=== PATIENT | female | born 1960 | race Caucasian/White ===

== ENCOUNTER 2017-10-30 08:35 | Emergency (ER) | payer MEDICAID ==
[~2017-10-30] VITALS: Ht 165.1 cm; Wt 80.6 kg
[~2017-10-30 08:35] MED LIST: ASPI-41 PO; DOCU100C40 PO; HYDR-3972 PO; NO HOME MEDS
[2017-10-30 09:20] LABS: HEMATOCRIT 49.1 % (35.0-45.0); MEAN CORPUSCULAR HEMOGLOBIN 28.8 PG (27.0-31.0); MEAN CORPUSCULAR HGB CONC 32.5 % (33.0-36.5); MEAN CORPUSCULAR VOLUME 88.6 FL (78-98); MEAN PLATELET VOLUME 7.2 FL (7.4-10.4); PLATELET COUNT 269 X10'3 (140-440); RED BLOOD COUNT 5.54 X10'6 (4.20-5.60); RED CELL DISTRIBUTION WIDTH 14.6 % (11.5-14.5); WHITE BLOOD COUNT 10.2 X10'3 (4.5-11.0)
[2017-10-30] MEDS ORDERED: ondansetron 4mg rapidly disintigrating tab PO ONE (09:25)
[2017-10-30] MEDS ORDERED: normal saline 1000ML IV soln IVB ONE (09:25)
[2017-10-30 09:33] LABS: PROTHROMBIN TIME 10.6 SECONDS (9.0-12.0)
[2017-10-30 09:37] LABS: ALANINE AMINOTRANSFERASE 35 U/L (12-78); ALBUMIN 3.1 G/DL (3.4-5.0); ALBUMIN/GLOBULIN RATIO 0.7 (1.1-1.5); ALKALINE PHOSPHATASE 119 IU/L (46-116); ANION GAP 6 (8-16); ASPARTATE AMINO TRANSFERASE 24 U/L (10-37); BILIRUBIN,TOTAL 0.6 MG/DL (0.1-1.0); BLOOD UREA NITROGEN 19 MG/DL (7-18); BUN/CREATININE RATIO 17.9 (6.6-38.0); CALCIUM 9.1 MG/DL (8.5-10.1); CHLORIDE 105 MMOL/L (99-107); CREATININE 1.06 MG/DL (0.40-0.90); GLUCOSE 105 MG/DL (70-104); POTASSIUM 4.3 MMOL/L (3.5-5.1); SODIUM 143 MMOL/L (135-145); TOTAL CARBON DIOXIDE 31.7 MMOL/L (24-32); TOTAL PROTEIN 7.7 G/DL (6.4-8.2); eGFR 53 ML/MIN
[2017-10-30 09:46] LABS: CLARITY,URINE SLIGHTLY CLOUDY (Clear); GLUCOSE, URINE NEGATIVE (Neg); KETONES,URINE TRACE mg/dl (Neg); LEUKOCYTE ESTERASE ,URINE NEGATIVE (Neg); NITRITES, URINE NEGATIVE (Neg); OCCULT BLOOD,URINE NEGATIVE (Neg); PH,URINE 6.5 (4.8-8.0); PROTEIN,URINE 100 mg/dl (Neg)
[2017-10-30 09:48] LABS: UA COLLECTION TYPE CLN CATCH MIDSTREAM
[2017-10-30 09:49] LABS: COLOR,URINE DARK YELLOW (Yellow)
[2017-10-30 09:53] LABS: HYALINE CASTS 0-3 /LPF (NEGATIVE); MUCUS STRANDS MANY /LPF (Neg); SQUAMOUS EPITHELIAL CELL,UR MANY /LPF (FEW)
[2017-10-30 09:54] LABS: BACTERIA,URINE FEW /HPF (Neg); RBC,URINE 0-2 /HPF (0-2); WBC,URINE 0-4 /HPF (0-4)
[2017-10-30 10:14] LABS: TOTAL CELLS COUNTED 100
[2017-10-30 10:16] LABS: PLATELET ESTIMATE NORMAL
[2017-10-30] MEDS ORDERED: ONDA4TAB6 PO (10:22)
[2017-10-30 10:32] VITALS: BP 119/66
== END 2017-10-30 10:33 | disposition home or self-care (01) ==
LOC: ER 08:36
DX: R11.10 Vomiting, unspecified (principal); I10 Essential (primary) hypertension; F15.10 Other stimulant abuse, uncomplicated; Z79.82 Long term (current) use of aspirin; Z95.2 Presence of prosthetic heart valve; Z88.5 Allergy status to narcotic agent
CPT/HCPCS: 36415; 80053; 81001; 85025; 85610; 96360; 99284; J7030

== ENCOUNTER 2018-05-13 01:39 | Emergency (ER) | payer MEDICAID ==
[~2018-05-13] VITALS: Ht 165.1 cm; Wt 81.8 kg
[~2018-05-13 01:39] MED LIST changes: +ONDA4TAB6 PO
[2018-05-13] MEDS ORDERED: normal saline 1000ML IV soln IVB ONE (02:05)
[2018-05-13 03:00] LABS: PROTHROMBIN TIME 10.6 SECONDS (9.0-12.0)
[2018-05-13 03:02] LABS: BASOPHILS # (AUTO) 0.1 X10'3 (0-0.2); BASOPHILS % (AUTO) 0.7 % (0-1); EOSINOPHILS # (AUTO) 0.2 X10'3 (0-0.9); EOSINOPHILS % (AUTO) 1.8 % (0-6); HEMATOCRIT 44.4 % (35.0-45.0); HEMOGLOBIN 14.8 g/dl (12.0-16.0); LYMPHOCYTES # (AUTO) 1.6 X10'3 (1.1-4.8); LYMPHOCYTES % (AUTO) 16.7 % (21-51); MEAN CORPUSCULAR HEMOGLOBIN 27.8 PG (27.0-31.0); MEAN CORPUSCULAR HGB CONC 33.3 % (33.0-36.5); MEAN CORPUSCULAR VOLUME 83.6 FL (78-98); MEAN PLATELET VOLUME 7.2 FL (7.4-10.4); MONOCYTES % (AUTO) 10.1 % (2-12); NEUTROPHILS # (AUTO) 6.7 X10'3 (1.8-7.7); NEUTROPHILS % (AUTO) 70.7 % (42-75); PLATELET COUNT 378 X10'3 (140-440); RED BLOOD COUNT 5.31 X10'6 (4.20-5.60); RED CELL DISTRIBUTION WIDTH 16.9 % (11.5-14.5); WHITE BLOOD COUNT 9.5 X10'3 (4.5-11.0)
[2018-05-13 03:04] LABS: URINE AMPHETAMINE SCREEN POSITIVE (Neg); URINE BARBITUATE SCREEN NEGATIVE (Neg); URINE BENZODIAZEPINES SCREEN NEGATIVE (Neg); URINE CANNABINOID SCREEN POSITIVE (Neg); URINE COCAINE SCREEN NEGATIVE (Neg); URINE METHADONE SCREEN NEGATIVE (Neg); URINE OPIATE SCREEN NEGATIVE (Neg); URINE PHENCYCLIDINE SCREEN NEGATIVE (Neg)
[2018-05-13 03:05] LABS: CLARITY,URINE CLEAR (Clear); COLOR,URINE YELLOW (Yellow); GLUCOSE, URINE NEGATIVE (Neg); KETONES,URINE NEGATIVE (Neg); LEUKOCYTE ESTERASE ,URINE NEGATIVE (Neg); NITRITES, URINE NEGATIVE (Neg); OCCULT BLOOD,URINE NEGATIVE (Neg); PH,URINE 5.5 (4.8-8.0); PROTEIN,URINE TRACE mg/dl (Neg); UROBILINOGEN,URINE 0.2 E.U/dL (0.2-1.0)
[2018-05-13 03:06] LABS: ALANINE AMINOTRANSFERASE 23 U/L (12-78); ALBUMIN 3.6 G/DL (3.4-5.0); ALBUMIN/GLOBULIN RATIO 0.8 (1.1-1.5); ALKALINE PHOSPHATASE 148 IU/L (46-116); ANION GAP 9 (8-16); ASPARTATE AMINO TRANSFERASE 23 U/L (10-37); BILIRUBIN,TOTAL 0.6 MG/DL (0.1-1.0); BLOOD UREA NITROGEN 37 MG/DL (7-18); CHLORIDE 101 MMOL/L (99-107); CREATININE 1.48 MG/DL (0.40-0.90); GLUCOSE 123 MG/DL (70-104); POTASSIUM 4.3 MMOL/L (3.5-5.1); SODIUM 138 MMOL/L (135-145); TOTAL CARBON DIOXIDE 28.4 MMOL/L (24-32); TOTAL PROTEIN 8.3 G/DL (6.4-8.2); eGFR 36 ML/MIN
[2018-05-13 03:07] LABS: UA COLLECTION TYPE CLN CATCH MIDSTREAM
[2018-05-13 03:09] LABS: LACTIC SEPSIS 0.9 MMOL/L (0.4-2.0)
[2018-05-13 03:10] LABS: ETHANOL < 0.010 GM/DL (0.0-0.010); TROPONIN I < 0.04 NG/ML (0.0-0.05)
[2018-05-13 03:28] LABS: WBC,URINE 0-4 /HPF (0-4)
[2018-05-13 03:29] LABS: BACTERIA,URINE NONE SEEN /HPF (Neg); HYALINE CASTS 0-3 /LPF (NEGATIVE); MUCUS STRANDS MANY /LPF (Neg); RBC,URINE NONE SEEN /HPF (0-2); SQUAMOUS EPITHELIAL CELL,UR MODERATE /LPF (FEW)
[2018-05-13 04:35] VITALS: BP 141/67
== END 2018-05-13 04:39 | disposition home or self-care (01) ==
LOC: ER 01:40
DX: F15.10 Other stimulant abuse, uncomplicated (principal); R91.8 Other nonspecific abnormal finding of lung field; I11.0 Hypertensive heart disease with heart failure; I50.9 Heart failure, unspecified; J44.9 Chronic obstructive pulmonary disease, unspecified; Z88.5 Allergy status to narcotic agent; Z79.82 Long term (current) use of aspirin; Z79.899 Other long term (current) drug therapy; Z98.890 Other specified postprocedural states
CPT/HCPCS: 36415; 70450; 71045; 80053; 80305; 80320; 81001; 82140; 82948; 83605; 84484; 85025; 85610; 87040; 93005; 99285; J7030

== ENCOUNTER 2018-05-15 13:16 | Inpatient (IN) | payer MEDICAID ==
[~2018-05-15] VITALS: Ht 165.1 cm; Wt 81.0 kg
[2018-05-15 13:55] LABS: BASOPHILS % (AUTO) 0.1 % (0-1); EOSINOPHILS # (AUTO) 0.2 X10'3 (0-0.9); EOSINOPHILS % (AUTO) 1.7 % (0-6); HEMATOCRIT 43.2 % (35.0-45.0); HEMOGLOBIN 14.5 g/dl (12.0-16.0); LYMPHOCYTES # (AUTO) 1.3 X10'3 (1.1-4.8); LYMPHOCYTES % (AUTO) 14.7 % (21-51); MEAN CORPUSCULAR HGB CONC 33.7 % (33.0-36.5); MEAN CORPUSCULAR VOLUME 83.3 FL (78-98); MEAN PLATELET VOLUME 7.1 FL (7.4-10.4); MONOCYTES # (AUTO) 0.5 X10'3 (0-0.9); MONOCYTES % (AUTO) 6.2 % (2-12); NEUTROPHILS # (AUTO) 6.8 X10'3 (1.8-7.7); NEUTROPHILS % (AUTO) 77.3 % (42-75); PLATELET COUNT 353 X10'3 (140-440); RED BLOOD COUNT 5.18 X10'6 (4.20-5.60); RED CELL DISTRIBUTION WIDTH 17.1 % (11.5-14.5); WHITE BLOOD COUNT 8.8 X10'3 (4.5-11.0)
[2018-05-15 14:07] LABS: PROTHROMBIN TIME 10.4 SECONDS (9.0-12.0)
[2018-05-15 14:21] LABS: ALANINE AMINOTRANSFERASE 23 U/L (12-78); ALBUMIN 3.2 G/DL (3.4-5.0); ALBUMIN/GLOBULIN RATIO 0.7 (1.1-1.5); ALKALINE PHOSPHATASE 130 IU/L (46-116); ANION GAP 8 (8-16); ASPARTATE AMINO TRANSFERASE 23 U/L (10-37); BILIRUBIN,TOTAL 0.3 MG/DL (0.1-1.0); BLOOD UREA NITROGEN 32 MG/DL (7-18); BUN/CREATININE RATIO 24.8 (6.6-38.0); CALCIUM 9.7 MG/DL (8.5-10.1); CHLORIDE 104 MMOL/L (99-107); CREATININE 1.29 MG/DL (0.40-0.90); GLUCOSE 145 MG/DL (70-104); POTASSIUM 4.1 MMOL/L (3.5-5.1); SODIUM 141 MMOL/L (135-145); TOTAL CARBON DIOXIDE 29.1 MMOL/L (24-32); TOTAL PROTEIN 7.7 G/DL (6.4-8.2); eGFR 42 ML/MIN
[2018-05-15] MEDS ORDERED: normal saline 1000ML IV soln IVB ONE (14:40)
[2018-05-15 15:05] LABS: URINE AMPHETAMINE SCREEN POSITIVE (Neg); URINE BARBITUATE SCREEN NEGATIVE (Neg); URINE BENZODIAZEPINES SCREEN NEGATIVE (Neg); URINE CANNABINOID SCREEN POSITIVE (Neg); URINE COCAINE SCREEN NEGATIVE (Neg); URINE METHADONE SCREEN NEGATIVE (Neg); URINE OPIATE SCREEN NEGATIVE (Neg); URINE PHENCYCLIDINE SCREEN NEGATIVE (Neg)
[2018-05-15 15:07] LABS: ETHANOL < 0.010 GM/DL (0.0-0.010); TROPONIN I < 0.04 NG/ML (0.0-0.05)
[2018-05-15 15:19] LABS: CLARITY,URINE CLOUDY (Clear); COLOR,URINE YELLOW (Yellow); GLUCOSE, URINE NEGATIVE (Neg); KETONES,URINE NEGATIVE (Neg); LEUKOCYTE ESTERASE ,URINE TRACE (Neg); NITRITES, URINE NEGATIVE (Neg); OCCULT BLOOD,URINE NEGATIVE (Neg); PH,URINE 5.5 (4.8-8.0); PROTEIN,URINE TRACE mg/dl (Neg); UA COLLECTION TYPE CLN CATCH MIDSTREAM; UROBILINOGEN,URINE 0.2 E.U/dL (0.2-1.0)
[2018-05-15 15:27] LABS: MUCUS STRANDS FEW /LPF (Neg); SQUAMOUS EPITHELIAL CELL,UR MANY /LPF (FEW)
[2018-05-15 15:28] LABS: BACTERIA,URINE 1+ /HPF (Neg); RBC,URINE 0-2 /HPF (0-2); WBC,URINE 0-4 /HPF (0-4)
[2018-05-15 15:35] LABS: LACTIC SEPSIS 1.1 MMOL/L (0.4-2.0)
[2018-05-15 15:41] LABS: AMMONIA < 10 UMOL/L (11-32)
[2018-05-15] MEDS ORDERED: NO HOME MEDS (15:50)
[2018-05-15] MEDS ORDERED: acetaminophen 325mg tablet PO ONE (16:30)
[2018-05-15] MEDS ORDERED: LORazepam 2 mg/ml vial IV ONE (16:40)
[2018-05-15] MEDS ORDERED: cloNIDine 0.1 mg tablet PO ONE (16:40)
[2018-05-15] MEDS ORDERED: magnesium hydroxide 30ml (MOM) UD suspension PO PRN (17:15)
[2018-05-15] MEDS ORDERED: magnesium 4gm in 100ml NS 100 ML IV PRN (17:15)
[2018-05-15] MEDS ORDERED: mag hydrox/Alum hydrox/simeth 30ml oral suspension PO PRN (17:15)
[2018-05-15] MEDS ORDERED: potassium Cl 20 mEq SR tablet PO PRN ×2 (17:15)
[2018-05-15] MEDS ORDERED: ondansetron/PF 4mg/2ml inj IV PRN (17:15)
[2018-05-15] MEDS ORDERED: magnesium 1gm/100ml D5W IVPB 100 ML IV PRN (17:15)
[2018-05-15] MEDS ORDERED: diphenhydrAMINE 25mg capsule PO PRN (17:15)
[2018-05-15] MEDS ORDERED: potassium Cl 40MEQ/NS 500ml 500 ML IV PRN ×2 (17:15)
[2018-05-15] MEDS ORDERED: magnesium Cl slow-release 64mg tablet PO PRN (17:15)
[2018-05-15] MEDS: K and/or MAG REPLACEMENT MC SCH (17:15)
[2018-05-15] MEDS ORDERED: acetaminophen 325mg tablet PO PRN (17:15)
[2018-05-15] MEDS ORDERED: aspirin 325mg tablet PO ONE (17:20)
[2018-05-15 17:49] LABS: HEMOGLOBIN A1C 6.7 % (4.5-6.2)
[2018-05-15] MEDS ORDERED: hydrALAZINE 20mg/ml inj. IV PRN (17:55)
[2018-05-15] MEDS: normal saline 1000ml 1,000 ML IV SCH (18:01)
[2018-05-15 20:00] VITALS: BP 148/90
[2018-05-15] MEDS: carvedilol 6.25mg tablet PO SCH (20:27)
[2018-05-15 22:00] VITALS: BP 138/83
[2018-05-16] VITALS (7 sets, daily range): BP systolic 129–190; BP diastolic 92–121
[2018-05-16] MEDS: normal saline 1000ml 1,000 ML IV SCH ×2 (04:03→15:52)
[2018-05-16 05:32] LABS: BASOPHILS % (AUTO) 0.2 % (0-1); EOSINOPHILS # (AUTO) 0.3 X10'3 (0-0.9); EOSINOPHILS % (AUTO) 3.1 % (0-6); HEMATOCRIT 38.7 % (35.0-45.0); HEMOGLOBIN 12.9 g/dl (12.0-16.0); LYMPHOCYTES # (AUTO) 1.4 X10'3 (1.1-4.8); LYMPHOCYTES % (AUTO) 14.7 % (21-51); MEAN CORPUSCULAR HEMOGLOBIN 27.7 PG (27.0-31.0); MEAN CORPUSCULAR HGB CONC 33.3 % (33.0-36.5); MEAN PLATELET VOLUME 7.2 FL (7.4-10.4); MONOCYTES # (AUTO) 0.8 X10'3 (0-0.9); MONOCYTES % (AUTO) 8.7 % (2-12); NEUTROPHILS # (AUTO) 6.9 X10'3 (1.8-7.7); NEUTROPHILS % (AUTO) 73.3 % (42-75); PLATELET COUNT 308 X10'3 (140-440); RED BLOOD COUNT 4.66 X10'6 (4.20-5.60); RED CELL DISTRIBUTION WIDTH 16.9 % (11.5-14.5); WHITE BLOOD COUNT 9.4 X10'3 (4.5-11.0)
[2018-05-16 05:59] LABS: ALANINE AMINOTRANSFERASE 18 U/L (12-78); ALBUMIN 2.5 G/DL (3.4-5.0); ALBUMIN/GLOBULIN RATIO 0.6 (1.1-1.5); ALKALINE PHOSPHATASE 106 IU/L (46-116); ANION GAP 8 (8-16); ASPARTATE AMINO TRANSFERASE 19 U/L (10-37); BILIRUBIN,TOTAL 0.3 MG/DL (0.1-1.0); BLOOD UREA NITROGEN 24 MG/DL (7-18); BUN/CREATININE RATIO 24.5 (6.6-38.0); CALCIUM 8.7 MG/DL (8.5-10.1); CHLORIDE 106 MMOL/L (99-107); CHOL/HDL RATIO 3.6 (0.00-4.99); CHOLESTEROL 178 MG/DL (0-200); CREATININE 0.98 MG/DL (0.40-0.90); GLUCOSE 112 MG/DL (70-104); HDL CHOLESTEROL 50 MG/DL (35-60); LDL CHOLESTEROL 117 MG/DL (50-100); MAGNESIUM 1.9 MG/DL (1.5-2.4); PHOSPHORUS 3.5 MG/DL (2.3-4.5); POTASSIUM 4.3 MMOL/L (3.5-5.1); SODIUM 140 MMOL/L (135-145); TOTAL CARBON DIOXIDE 26.4 MMOL/L (24-32); TOTAL PROTEIN 6.4 G/DL (6.4-8.2); TRIGLYCERIDES 74 MG/DL (20-135); eGFR 58 ML/MIN
[2018-05-16] MEDS: K and/or MAG REPLACEMENT MC SCH (07:54)
[2018-05-16] MEDS ORDERED: atorvastatin 10mg tablet PO SCH (08:00)
[2018-05-16] MEDS: carvedilol 6.25mg tablet PO SCH ×2 (08:02→20:53)
[2018-05-16] MEDS: aspirin 81mg tablet.DR PO SCH (08:03)
[2018-05-16] MEDS: enoxaparin 40mg/0.4ml syringe SUBCUT SCH (08:04)
[2018-05-16] MEDS: atorvastatin 20mg tablet PO SCH (10:39)
[2018-05-16] MEDS ORDERED: metFORMIN 500mg tablet PO ONE (17:35)
[2018-05-16] MEDS ORDERED: amLODIPine 5mg tablet PO ONE (17:40)
[2018-05-16] MEDS: acetaminophen 325mg tablet PO PRN (18:52)
[2018-05-17 06:00] VITALS: BP 154/100
[2018-05-17 06:16] LABS: BASOPHILS # (AUTO) 0.1 X10'3 (0-0.2); BASOPHILS % (AUTO) 0.9 % (0-1); EOSINOPHILS # (AUTO) 0.2 X10'3 (0-0.9); HEMATOCRIT 39.9 % (35.0-45.0); HEMOGLOBIN 13.5 g/dl (12.0-16.0); LYMPHOCYTES # (AUTO) 1.4 X10'3 (1.1-4.8); LYMPHOCYTES % (AUTO) 16.6 % (21-51); MEAN CORPUSCULAR HEMOGLOBIN 28.1 PG (27.0-31.0); MEAN CORPUSCULAR HGB CONC 33.8 % (33.0-36.5); MEAN PLATELET VOLUME 7.2 FL (7.4-10.4); MONOCYTES # (AUTO) 0.8 X10'3 (0-0.9); MONOCYTES % (AUTO) 10.2 % (2-12); NEUTROPHILS # (AUTO) 5.7 X10'3 (1.8-7.7); NEUTROPHILS % (AUTO) 69.3 % (42-75); PLATELET COUNT 321 X10'3 (140-440); RED BLOOD COUNT 4.81 X10'6 (4.20-5.60); RED CELL DISTRIBUTION WIDTH 16.4 % (11.5-14.5); WHITE BLOOD COUNT 8.2 X10'3 (4.5-11.0)
[2018-05-17 06:47] LABS: ALANINE AMINOTRANSFERASE 23 U/L (12-78); ALBUMIN 2.8 G/DL (3.4-5.0); ALBUMIN/GLOBULIN RATIO 0.7 (1.1-1.5); ALKALINE PHOSPHATASE 112 IU/L (46-116); ANION GAP 4 (8-16); ASPARTATE AMINO TRANSFERASE 24 U/L (10-37); BILIRUBIN,TOTAL 0.3 MG/DL (0.1-1.0); BLOOD UREA NITROGEN 19 MG/DL (7-18); BUN/CREATININE RATIO 18.3 (6.6-38.0); CALCIUM 9.2 MG/DL (8.5-10.1); CHLORIDE 103 MMOL/L (99-107); CREATININE 1.04 MG/DL (0.40-0.90); GLUCOSE 104 MG/DL (70-104); MAGNESIUM 1.8 MG/DL (1.5-2.4); PHOSPHORUS 3.9 MG/DL (2.3-4.5); POTASSIUM 4.1 MMOL/L (3.5-5.1); SODIUM 136 MMOL/L (135-145); TOTAL CARBON DIOXIDE 29.3 MMOL/L (24-32); eGFR 54 ML/MIN
[2018-05-17] MEDS ORDERED: amLODIPine 5mg tablet PO SCH (08:00)
[2018-05-17] MEDS: K and/or MAG REPLACEMENT MC SCH (08:00)
[2018-05-17] MEDS ORDERED: nitrofuran/nitrofuran macrocrysal 100 MG capsule PO SCH (08:30)
[2018-05-17] MEDS: enoxaparin 40mg/0.4ml syringe SUBCUT SCH (08:32)
[2018-05-17] MEDS: aspirin 81mg tablet.DR PO SCH (08:33)
[2018-05-17] MEDS: carvedilol 6.25mg tablet PO SCH (08:34)
[2018-05-17] MEDS: atorvastatin 20mg tablet PO SCH (08:34)
[2018-05-17 08:38] VITALS: BP_SYST 143; BP_SYST 155; BP_DIAS 93; BP_DIAS 97
[2018-05-17 10:00] VITALS: BP 124/92
[2018-05-17] MEDS: acetaminophen 325mg tablet PO PRN (11:56)
[2018-05-17] MEDS ORDERED: ASPI-1264 PO (17:33)
[2018-05-17] MEDS ORDERED: ATOR10TA PO (17:33)
== END 2018-05-17 18:15 | disposition home or self-care (01) | DRG 45 ==
LOC: ER 13:17 → ED HOLD 17:12 → CMPBEDREQ 19:53 → ORTHO 4S 19:59
PROVIDERS: ADMIT Family Medicine; ATTEND Internal Medicine
DX: I63.40 Cerebral infarction due to embolism of unspecified cerebral artery (principal); G93.40 Encephalopathy, unspecified; N17.9 Acute kidney failure, unspecified; I11.0 Hypertensive heart disease with heart failure; I50.9 Heart failure, unspecified; E11.9 Type 2 diabetes mellitus without complications; F15.10 Other stimulant abuse, uncomplicated; E78.5 Hyperlipidemia, unspecified; F12.10 Cannabis abuse, uncomplicated; F17.210 Nicotine dependence, cigarettes, uncomplicated; I25.10 Atherosclerotic heart disease of native coronary artery without angina pectoris; F41.9 Anxiety disorder, unspecified; J44.9 Chronic obstructive pulmonary disease, unspecified; N39.0 Urinary tract infection, site not specified; Z79.82 Long term (current) use of aspirin; Z79.899 Other long term (current) drug therapy; Z95.2 Presence of prosthetic heart valve; Z88.5 Allergy status to narcotic agent; Z71.6 Tobacco abuse counseling; Z71.51 Drug abuse counseling and surveillance of drug abuser
CPT/HCPCS: 36415; 70450; 70544; 70551; 80053; 80061; 80305; 80320; 81001; 82140; 82948; 83036; 83605; 83735; 84100; 84484; 85025; 85610; 87040; 87070; 92616; 93306; 93880; 96374; 97116; 97161; 99285; J1650; J2060; J7030

== ENCOUNTER 2018-05-27 11:40 | Emergency (ER) | payer MEDICAID ==
[~2018-05-27] VITALS: Ht 165.1 cm; Wt 82.7 kg
[~2018-05-27 11:40] MED LIST changes: +ASPI-1264 PO; -ASPI-41 PO; +ATOR10TA PO; -DOCU100C40 PO; -HYDR-3972 PO; -ONDA4TAB6 PO
[2018-05-27 12:33] LABS: CLARITY,URINE CLOUDY (Clear); COLOR,URINE YELLOW (Yellow); GLUCOSE, URINE NEGATIVE (Neg); KETONES,URINE NEGATIVE (Neg); LEUKOCYTE ESTERASE ,URINE LARGE (Neg); NITRITES, URINE POSITIVE (Neg); OCCULT BLOOD,URINE LARGE (Neg); PROTEIN,URINE 100 mg/dl (Neg)
[2018-05-27 12:39] LABS: UA COLLECTION TYPE CLN CATCH MIDSTREAM
[2018-05-27 12:40] LABS: WBC,URINE TNTC /HPF (0-4)
[2018-05-27 12:41] LABS: BACTERIA,URINE 2+ /HPF (Neg); MUCUS STRANDS NONE SEEN /LPF (Neg); RBC,URINE 50-100 /HPF (0-2); SQUAMOUS EPITHELIAL CELL,UR NONE SEEN /LPF (FEW)
[2018-05-27 13:19] LABS: BASOPHILS % (AUTO) 0.2 % (0-1); EOSINOPHILS # (AUTO) 0.2 X10'3 (0-0.9); EOSINOPHILS % (AUTO) 1.5 % (0-6); HEMATOCRIT 40.9 % (35.0-45.0); HEMOGLOBIN 13.4 g/dl (12.0-16.0); LYMPHOCYTES # (AUTO) 1.2 X10'3 (1.1-4.8); LYMPHOCYTES % (AUTO) 9.6 % (21-51); MEAN CORPUSCULAR HEMOGLOBIN 27.5 PG (27.0-31.0); MEAN CORPUSCULAR HGB CONC 32.7 % (33.0-36.5); MEAN CORPUSCULAR VOLUME 84.1 FL (78-98); MONOCYTES # (AUTO) 0.9 X10'3 (0-0.9); MONOCYTES % (AUTO) 7.3 % (2-12); NEUTROPHILS # (AUTO) 10.4 X10'3 (1.8-7.7); NEUTROPHILS % (AUTO) 81.4 % (42-75); PLATELET COUNT 337 X10'3 (140-440); RED BLOOD COUNT 4.87 X10'6 (4.20-5.60); RED CELL DISTRIBUTION WIDTH 17.1 % (11.5-14.5); WHITE BLOOD COUNT 12.8 X10'3 (4.5-11.0)
[2018-05-27] MEDS ORDERED: normal saline 1000ML IV soln IVB ONE ×2 (13:20→13:45)
[2018-05-27] MEDS ORDERED: CefTRIAXone 2gm/D5W 50ml 50 ML IV ONE ×2 (13:20→13:40)
[2018-05-27 14:03] LABS: PROTHROMBIN TIME 10.7 SECONDS (9.0-12.0)
[2018-05-27 14:11] LABS: ALANINE AMINOTRANSFERASE 23 U/L (12-78); ALBUMIN 2.9 G/DL (3.4-5.0); ALBUMIN/GLOBULIN RATIO 0.7 (1.1-1.5); ALKALINE PHOSPHATASE 105 IU/L (46-116); ANION GAP 9 (8-16); ASPARTATE AMINO TRANSFERASE 21 U/L (10-37); BILIRUBIN,TOTAL 0.4 MG/DL (0.1-1.0); BLOOD UREA NITROGEN 21 MG/DL (7-18); BUN/CREATININE RATIO 20.8 (6.6-38.0); CALCIUM 8.6 MG/DL (8.5-10.1); CHLORIDE 106 MMOL/L (99-107); CREATININE 1.01 MG/DL (0.40-0.90); GLUCOSE 102 MG/DL (70-104); POTASSIUM 3.9 MMOL/L (3.5-5.1); SODIUM 141 MMOL/L (135-145); TOTAL CARBON DIOXIDE 26.5 MMOL/L (24-32); TOTAL PROTEIN 6.8 G/DL (6.4-8.2); eGFR 56 ML/MIN
[2018-05-27] MEDS ORDERED: phenazopyridine 100mg tablet PO ONE (15:00)
[2018-05-27] MEDS ORDERED: CEPH500C5 PO (15:00)
[2018-05-27] MEDS ORDERED: PHEN-716 PO (15:00)
[2018-05-27] MEDS ORDERED: ONDA4TAB12 PO (15:00)
[2018-05-27 15:14] VITALS: BP 147/95
== END 2018-05-27 15:16 | disposition home or self-care (01) ==
LOC: ER 11:41
DX: N39.0 Urinary tract infection, site not specified (principal); R10.12 Left upper quadrant pain; I50.9 Heart failure, unspecified; I11.0 Hypertensive heart disease with heart failure; J44.9 Chronic obstructive pulmonary disease, unspecified; F17.210 Nicotine dependence, cigarettes, uncomplicated; F15.90 Other stimulant use, unspecified, uncomplicated; Z98.890 Other specified postprocedural states; Z79.82 Long term (current) use of aspirin; Z79.2 Long term (current) use of antibiotics; Z88.5 Allergy status to narcotic agent
CPT/HCPCS: 36415; 80053; 81001; 85025; 85610; 87077; 87088; 87186; 96365; 99284; J0696; J7030

== ENCOUNTER 2018-09-30 08:46 | Emergency (ER) | payer MEDICAID ==
[~2018-09-30] VITALS: Ht 165.1 cm; Wt 79.0 kg
[~2018-09-30 08:46] MED LIST changes: -ASPI-1264 PO; +CEPH500C5 PO; +ONDA4TAB12 PO; +PHEN-716 PO
[2018-09-30 08:57] VITALS: BP 137/93
[2018-09-30 10:00] LABS: CLARITY,URINE CLEAR (Clear); COLOR,URINE YELLOW (Yellow); GLUCOSE, URINE NEGATIVE (Neg); KETONES,URINE NEGATIVE (Neg); LEUKOCYTE ESTERASE ,URINE TRACE (Neg); NITRITES, URINE NEGATIVE (Neg); OCCULT BLOOD,URINE NEGATIVE (Neg); PH,URINE 6.5 (4.8-8.0); PROTEIN,URINE 30 mg/dl (Neg)
[2018-09-30 10:09] LABS: UA COLLECTION TYPE CLN CATCH MIDSTREAM
[2018-09-30 10:15] LABS: RBC,URINE 0-2 /HPF (0-2); WBC,URINE 0-4 /HPF (0-4)
[2018-09-30 10:17] LABS: BACTERIA,URINE FEW /HPF (Neg); MUCUS STRANDS FEW /LPF (Neg)
[2018-09-30 10:18] LABS: SQUAMOUS EPITHELIAL CELL,UR MANY /LPF (FEW)
== END 2018-09-30 11:07 | disposition left against medical advice (07) ==
LOC: ER 08:47
DX: R10.9 Unspecified abdominal pain (principal); Z53.21 Procedure and treatment not carried out due to patient leaving prior to being seen by health care provider
CPT/HCPCS: 81001

== ENCOUNTER 2018-10-14 20:03 | Emergency (ER) | payer MEDICAID ==
[~2018-10-14] VITALS: Ht 165.1 cm; Wt 80.7 kg
[2018-10-14] MEDS ORDERED: ketorolac tromethamine 15mg/ml inj. IM ONE (23:00)
[2018-10-14 23:40] VITALS: BP 133/69
== END 2018-10-14 23:43 | disposition home or self-care (01) ==
LOC: ER 20:04
DX: M25.559 Pain in unspecified hip (principal); M54.5 Low back pain; I11.0 Hypertensive heart disease with heart failure; I50.9 Heart failure, unspecified; J44.9 Chronic obstructive pulmonary disease, unspecified; F15.90 Other stimulant use, unspecified, uncomplicated; Z88.5 Allergy status to narcotic agent; Z79.899 Other long term (current) drug therapy; W01.0XXA Fall on same level from slipping, tripping and stumbling without subsequent striking against object, initial encounter; Y93.01 Activity, walking, marching and hiking; Y92.89 Other specified places as the place of occurrence of the external cause; Y99.8 Other external cause status
CPT/HCPCS: 72170; 96372; 99284; J1885

== ENCOUNTER 2018-11-03 15:25 | Emergency (ER) | payer MEDICAID ==
[~2018-11-03] VITALS: Ht 165.1 cm; Wt 72.7 kg
[2018-11-03 17:17] LABS: BASOPHILS # (AUTO) 0.1 X10'3 (0-0.2); BASOPHILS % (AUTO) 0.5 % (0-1); EOSINOPHILS # (AUTO) 0.2 X10'3 (0-0.9); EOSINOPHILS % (AUTO) 1.7 % (0-6); HEMATOCRIT 39.1 % (35.0-45.0); LYMPHOCYTES # (AUTO) 1.7 X10'3 (1.1-4.8); LYMPHOCYTES % (AUTO) 12.4 % (21-51); MEAN CORPUSCULAR HEMOGLOBIN 22.9 PG (27.0-31.0); MEAN CORPUSCULAR HGB CONC 30.7 % (33.0-36.5); MEAN CORPUSCULAR VOLUME 74.5 FL (78-98); MEAN PLATELET VOLUME 7.4 FL (7.4-10.4); MONOCYTES # (AUTO) 1.1 X10'3 (0-0.9); MONOCYTES % (AUTO) 7.5 % (2-12); NEUTROPHILS % (AUTO) 77.9 % (42-75); PLATELET COUNT 568 X10'3 (140-440); RED BLOOD COUNT 5.25 X10'6 (4.20-5.60); RED CELL DISTRIBUTION WIDTH 20.3 % (11.5-14.5); WHITE BLOOD COUNT 14.1 X10'3 (4.5-11.0)
[2018-11-03 17:22] LABS: ALANINE AMINOTRANSFERASE 43 U/L (12-78); ALBUMIN 2.4 G/DL (3.4-5.0); ALBUMIN/GLOBULIN RATIO 0.4 (1.1-1.5); ALKALINE PHOSPHATASE 133 IU/L (46-116); ANION GAP 11 (8-16); ASPARTATE AMINO TRANSFERASE 40 U/L (10-37); BILIRUBIN,TOTAL 0.2 MG/DL (0.1-1.0); BLOOD UREA NITROGEN 32 MG/DL (7-18); BUN/CREATININE RATIO 23.2 (6.6-38.0); CALCIUM 10.4 MG/DL (8.5-10.1); CHLORIDE 100 MMOL/L (99-107); CREATININE 1.38 MG/DL (0.40-0.90); GLUCOSE 104 MG/DL (70-104); SODIUM 137 MMOL/L (135-145); TOTAL CARBON DIOXIDE 26.1 MMOL/L (24-32); TOTAL PROTEIN 8.5 G/DL (6.4-8.2); eGFR 39 ML/MIN
[2018-11-03 17:26] LABS: INR 1.1 INR; PARTIAL THROMBOPLASTIN TIME 27 SECONDS (22-32); PROTHROMBIN TIME 10.7 SECONDS (9.0-12.0)
[2018-11-03 17:31] LABS: ANISOCYTOSIS 2+; HYPOCHROMASIA 1+; LARGE PLATELETS FEW; MICROCYTOSIS 1+; PLATELET ESTIMATE INCREASED; POLYCHROMASIA 1+
[2018-11-03 17:52] LABS: CLARITY,URINE SLIGHTLY CLOUDY (Clear); COLOR,URINE YELLOW (Yellow); GLUCOSE, URINE NEGATIVE (Neg); KETONES,URINE NEGATIVE (Neg); LEUKOCYTE ESTERASE ,URINE NEGATIVE (Neg); NITRITES, URINE NEGATIVE (Neg); OCCULT BLOOD,URINE SMALL (Neg); PROTEIN,URINE TRACE mg/dl (Neg)
[2018-11-03 17:54] LABS: UA COLLECTION TYPE CLN CATCH MIDSTREAM
[2018-11-03 17:57] LABS: WBC,URINE 0-4 /HPF (0-4)
[2018-11-03 17:58] LABS: BACTERIA,URINE 1+ /HPF (Neg); MUCUS STRANDS FEW /LPF (Neg); RBC,URINE 0-2 /HPF (0-2); SQUAMOUS EPITHELIAL CELL,UR MANY /LPF (FEW)
--- NOTE | 2018-11-03 18:20 | NUR ---
PATIENT UP IN THE BATHROOM.
[2018-11-03] MEDS ORDERED: DOXYCYCLINE 100MG CAPSULE PO STA (19:00)
[2018-11-03] MEDS ORDERED: CefTRIAXone 2gm/D5W 50ml 50 ML IV ONE (19:00)
[2018-11-03] MEDS ORDERED: methylPREDNISolone sod succ 125mg/2ml vial IV ONE (19:00)
[2018-11-03] MEDS ORDERED: albuterol 2.5 MG/3 ML nebule CONTNEB PRN (19:00)
[2018-11-03] MEDS ORDERED: ALBU6.7H INH (19:03)
[2018-11-03] MEDS ORDERED: DOXY100T2 PO (19:03)
[2018-11-03] MEDS ORDERED: PRED20TA PO (19:03)
[2018-11-03 19:23] VITALS: BP 129/66
== END 2018-11-03 20:42 | disposition home or self-care (01) ==
LOC: ER 15:25
DX: J44.1 Chronic obstructive pulmonary disease with (acute) exacerbation (principal); R06.03 Acute respiratory distress; R22.2 Localized swelling, mass and lump, trunk; I11.0 Hypertensive heart disease with heart failure; I50.9 Heart failure, unspecified; F41.9 Anxiety disorder, unspecified; F15.10 Other stimulant abuse, uncomplicated; Z88.5 Allergy status to narcotic agent; F17.210 Nicotine dependence, cigarettes, uncomplicated
CPT/HCPCS: 36415; 71045; 80053; 81001; 83605; 84145; 85025; 85610; 85730; 87040; 94644; 94760; 96365; 96375; 99285; J0696; J2930; 94640

== ENCOUNTER 2018-11-06 16:53 | Inpatient (IN) | payer MEDICAID | END 2018-11-09 13:06 | disposition home or self-care (01) | LOC: SUR 3N 23:00 → ER 16:53 → ED HOLD 21:09 ==

== ENCOUNTER 2019-01-10 15:46 | Inpatient (IN) | payer MEDICAID ==
[~2019-01-10] VITALS: Ht 165.1 cm; Wt 77.3 kg
[~2019-01-10 15:46] MED LIST changes: +ALBU6.7H INH; -CEPH500C5 PO; +DOXY100T2 PO; -NO HOME MEDS; -ONDA4TAB12 PO; -PHEN-716 PO
[2019-01-10] MEDS ORDERED: diltiazem-D5W 125mg/125ml 125 ML IV ONE ×2 (15:51→19:54)
[2019-01-10] MEDS ORDERED: diltiazem 5mg/ml 5ml inj. IV ONE ×2 (15:55→16:30)
[2019-01-10 16:21] LABS: BASOPHILS # (AUTO) 0.1 X10'3 (0-0.2); BASOPHILS % (AUTO) 0.9 % (0-1); EOSINOPHILS % (AUTO) 0.3 % (0-6); HEMATOCRIT 37.3 % (35.0-45.0); LYMPHOCYTES # (AUTO) 1.4 X10'3 (1.1-4.8); LYMPHOCYTES % (AUTO) 19.5 % (21-51); MEAN CORPUSCULAR HEMOGLOBIN 25.5 PG (27.0-31.0); MEAN CORPUSCULAR HGB CONC 32.3 g/dL (33.0-36.5); MEAN CORPUSCULAR VOLUME 79.1 FL (78-98); MEAN PLATELET VOLUME 8.2 FL (7.4-10.4); MONOCYTES # (AUTO) 0.4 X10'3 (0-0.9); MONOCYTES % (AUTO) 6.1 % (2-12); NEUTROPHILS # (AUTO) 5.2 X10'3 (1.8-7.7); NEUTROPHILS % (AUTO) 73.2 % (42-75); PLATELET COUNT 200 X10'3 (140-440); RED BLOOD COUNT 4.71 X10'6 (4.20-5.60); RED CELL DISTRIBUTION WIDTH 28.1 % (11.5-14.5); WHITE BLOOD COUNT 7.1 X10'3 (4.5-11.0)
--- NOTE | 2019-01-10 16:29 | NUR ---
DR JANE INFORMED AND SHOWN RHYTHM STRIP THAT PT HEART RATE WENT DOWN TO 99 AND THE RETURN BACK TO 160S WITH IN A COUPLE MINUTES, RECEIVED VERBAL ORDER FOR 10 MG IV CARDIZEM ONCE NOW AND GIVE UPDATE OF PT CHANGE
[2019-01-10 16:34] LABS: ANISOCYTOSIS 3+; MICROCYTOSIS 1+; PLATELET ESTIMATE NORMAL
[2019-01-10 16:35] LABS: POLYCHROMASIA FEW
[2019-01-10 16:36] LABS: ALANINE AMINOTRANSFERASE 43 U/L (12-78); ALBUMIN 2.4 G/DL (3.4-5.0); ALBUMIN/GLOBULIN RATIO 0.6 (1.1-1.5); ALKALINE PHOSPHATASE 143 IU/L (46-116); ANION GAP 10 (8-16); ASPARTATE AMINO TRANSFERASE 38 U/L (10-37); BILIRUBIN,TOTAL 0.2 MG/DL (0.1-1.0); BLOOD UREA NITROGEN 31 MG/DL (7-18); BUN/CREATININE RATIO 24.8 (6.6-38.0); CALCIUM 9.2 MG/DL (8.5-10.1); CHLORIDE 110 MMOL/L (99-107); CREATININE 1.25 MG/DL (0.40-0.90); GLUCOSE 169 MG/DL (70-104); POTASSIUM 3.7 MMOL/L (3.5-5.1); SODIUM 143 MMOL/L (135-145); TOTAL CARBON DIOXIDE 22.6 MMOL/L (24-32); TOTAL PROTEIN 6.5 G/DL (6.4-8.2); eGFR 44 ML/MIN
[2019-01-10] MEDS ORDERED: metoprolol tartrate 1mg/ml inj IV ONE (16:45)
--- NOTE | 2019-01-10 16:45 | NUR ---
DR JANE SHOWN PT REPEAT EKG AFTER SECOND DOSE OF 10 MG CARDIZEM, RECEIVED VERBAL ORDER FROM DR JANE 5MG IV LOPRESSER ONCE NOW.
[2019-01-10 17:06] LABS: PARTIAL THROMBOPLASTIN TIME 25 SECONDS (22-32); PROTHROMBIN TIME 10.3 SECONDS (9.0-12.0)
[2019-01-10] MEDS ORDERED: IPRA4AER IH (17:06)
[2019-01-10] MEDS ORDERED: HYDR2TAB7 PO (17:06)
[2019-01-10] MEDS ORDERED: ONDA8TAB13 PO (17:06)
[2019-01-10] MEDS ORDERED: iohexol 350MG/ML 100ml bottle IV ONE (17:27)
[2019-01-10] MEDS: normal saline 1000ml 1,000 ML IV SCH (17:47)
[2019-01-10] MEDS ORDERED: metoprolol tartrate 1mg/ml inj IV PRN (17:50)
[2019-01-10] MEDS ORDERED: ondansetron/PF 4mg/2ml inj IV PRN (17:50)
[2019-01-10] MEDS ORDERED: nitroGLYCERIN 0.4mg SUBLingual tab SL PRN (17:50)
[2019-01-10] MEDS ORDERED: regadenoson 0.4mg/5ml syringe IV ONE (17:50)
[2019-01-10] MEDS ORDERED: potassium Cl 40MEQ/NS 500ml 500 ML IV PRN ×2 (17:50)
[2019-01-10] MEDS ORDERED: acetaminophen 325mg tablet PO PRN (17:50)
[2019-01-10] MEDS ORDERED: potassium Cl 20 mEq SR tablet PO PRN ×2 (17:50)
[2019-01-10 19:50] VITALS: BP 134/88
--- NOTE | 2019-01-10 19:50 | NUR ---
Patient arrived to room 3014B via gurney from the ER with daughter at bedside. Patient oriented to room, call light, plan of care and all questions were answered. All belongings on person. Placed on Mobile 62, vital signs stable. Cardizem drip running at 5ml/hr.
[2019-01-10 20:00] VITALS: BP 134/88
[2019-01-10] MEDS ORDERED: diltiazem-D5W 125mg/125ml 125 ML IV SCH ×2 (20:00→20:04)
[2019-01-10] MEDS ORDERED: temazepam 15mg capsule PO PRN (21:00)
[2019-01-10] MEDS: acetaminophen 325mg tablet PO PRN (21:15)
[2019-01-10 22:00] VITALS: BP 141/78
[2019-01-10 23:00] VITALS: BP 121/74
[2019-01-11] VITALS (15 sets, daily range): BP systolic 114–175; BP diastolic 76–89
[2019-01-11] MEDS: acetaminophen 325mg tablet PO PRN ×3 (04:31→19:23)
[2019-01-11 05:14] LABS: ALANINE AMINOTRANSFERASE 37 U/L (12-78); ALBUMIN 2.2 G/DL (3.4-5.0); ALBUMIN/GLOBULIN RATIO 0.6 (1.1-1.5); ALKALINE PHOSPHATASE 129 IU/L (46-116); ANION GAP 10 (8-16); ASPARTATE AMINO TRANSFERASE 38 U/L (10-37); BILIRUBIN,TOTAL 0.2 MG/DL (0.1-1.0); BLOOD UREA NITROGEN 31 MG/DL (7-18); BUN/CREATININE RATIO 28.7 (6.6-38.0); CALCIUM 9.1 MG/DL (8.5-10.1); CHLORIDE 111 MMOL/L (99-107); CREATININE 1.08 MG/DL (0.40-0.90); GLUCOSE 84 MG/DL (70-104); POTASSIUM 3.8 MMOL/L (3.5-5.1); SODIUM 144 MMOL/L (135-145); TOTAL CARBON DIOXIDE 23.3 MMOL/L (24-32); TOTAL PROTEIN 5.9 G/DL (6.4-8.2); eGFR 52 ML/MIN
[2019-01-11 05:18] LABS: MAGNESIUM 1.9 MG/DL (1.5-2.4)
[2019-01-11 05:19] LABS: BASOPHILS % (AUTO) 0.7 % (0-1); EOSINOPHILS % (AUTO) 0.7 % (0-6); HEMATOCRIT 33.1 % (35.0-45.0); HEMOGLOBIN 10.8 g/dl (12.0-16.0); LYMPHOCYTES # (AUTO) 1.3 X10'3 (1.1-4.8); LYMPHOCYTES % (AUTO) 19.5 % (21-51); MEAN CORPUSCULAR HEMOGLOBIN 25.8 PG (27.0-31.0); MEAN CORPUSCULAR HGB CONC 32.5 g/dL (33.0-36.5); MEAN CORPUSCULAR VOLUME 79.3 FL (78-98); MEAN PLATELET VOLUME 6.8 FL (7.4-10.4); MONOCYTES # (AUTO) 0.7 X10'3 (0-0.9); MONOCYTES % (AUTO) 9.7 % (2-12); NEUTROPHILS # (AUTO) 4.7 X10'3 (1.8-7.7); NEUTROPHILS % (AUTO) 69.4 % (42-75); PLATELET COUNT 211 X10'3 (140-440); RED BLOOD COUNT 4.18 X10'6 (4.20-5.60); RED CELL DISTRIBUTION WIDTH 27.7 % (11.5-14.5); WHITE BLOOD COUNT 6.7 X10'3 (4.5-11.0)
--- NOTE | 2019-01-11 06:34 | NUR ---
Problems reprioritized. Patient report given, questions answered & plan of care reviewed with Sara HAYWARD.
--- NOTE | 2019-01-11 06:49 | NUR ---
Patient in room PCU 3014. I have received report from Joi HAYWARD and had the opportunity to ask questions and assume patient care.
[2019-01-11 07:08] LABS: ANISOCYTOSIS 3+; HYPOCHROMASIA 1+; MICROCYTOSIS 1+; PLATELET ESTIMATE NORMAL; POLYCHROMASIA 1+; TOTAL CELLS COUNTED 100
[2019-01-11] MEDS: K and/or MAG REPLACEMENT MC SCH (07:14)
[2019-01-11] MEDS: levoFLOXACIN-Levaquin 500mg/D5 100 ML IV SCH (08:00)
[2019-01-11] MEDS: albuterol 2.5 MG/3 ML nebule NEB SCH ×4 (08:00→20:04)
--- NOTE | 2019-01-11 08:10 | NUR ---
PAGER ID: [phone] MESSAGE: guy this patient is on a Cardizem drip and needs a lencho scan today, nuc med said she cannot be on the drip during the test. so either turn it off or reschedule? [id number] karen
--- NOTE | 2019-01-11 08:16 | NUR ---
PAGER ID: [phone] MESSAGE: laly Guillory 70's 80's all night
[2019-01-11] MEDS: metroNIDAZOLE-Flagyl 500mg/NS 100 ML IV SCH ×2 (09:14→16:19)
[2019-01-11] MEDS: diltiazem CD 120mg capsule (once-daily) PO SCH (09:19)
[2019-01-11] MEDS: aspirin 81mg tab.chew PO SCH (09:19)
[2019-01-11] MEDS: atorvastatin 20mg tablet PO SCH (09:19)
[2019-01-11 11:12] LABS: CHOLESTEROL 192 MG/DL (0-200); HDL CHOLESTEROL 32 MG/DL (35-60); LDL CHOLESTEROL 117 MG/DL (50-100); TRIGLYCERIDES 227 MG/DL (20-135)
[2019-01-11] MEDS ORDERED: regadenoson 0.4mg/5ml syringe IV ONE (13:45)
[2019-01-11] MEDS ORDERED: aminophylline inj. 10 ML IV ONE (13:45)
--- NOTE | 2019-01-11 14:09 | NUR ---
leaving for nuc med lencho scan
[2019-01-11] MEDS: aminophylline 250mg/10ml inj. IV PRN ×2 (15:07→15:11)
--- NOTE | 2019-01-11 18:20 | NUR ---
Patient in room PCU 3014. I have received report from Sara HAYWARD and had the opportunity to ask questions and assume patient care.
[2019-01-11] MEDS: apixaban 5mg tablet PO SCH (19:58)
[2019-01-12] MEDS: metroNIDAZOLE-Flagyl 500mg/NS 100 ML IV SCH ×4 (00:40→23:03)
[2019-01-12] MEDS: morphine 4 MG/ML inj SYRINge IV PRN ×4 (01:07→22:10)
[2019-01-12] MEDS: albuterol 2.5 MG/3 ML nebule NEB SCH ×4 (02:59→20:24)
[2019-01-12 03:00] VITALS: BP 170/97
[2019-01-12] MEDS: acetaminophen 325mg tablet PO PRN ×2 (03:13→16:35)
[2019-01-12] MEDS: normal saline 1000ml 1,000 ML IV SCH (05:45)
[2019-01-12 06:17] LABS: BASOPHILS % (AUTO) 0.6 % (0-1); EOSINOPHILS % (AUTO) 0.5 % (0-6); HEMATOCRIT 32.9 % (35.0-45.0); HEMOGLOBIN 10.6 g/dl (12.0-16.0); LYMPHOCYTES # (AUTO) 1.1 X10'3 (1.1-4.8); LYMPHOCYTES % (AUTO) 18.2 % (21-51); MEAN CORPUSCULAR HEMOGLOBIN 25.6 PG (27.0-31.0); MEAN CORPUSCULAR HGB CONC 32.2 g/dL (33.0-36.5); MEAN CORPUSCULAR VOLUME 79.5 FL (78-98); MEAN PLATELET VOLUME 6.6 FL (7.4-10.4); MONOCYTES # (AUTO) 0.6 X10'3 (0-0.9); MONOCYTES % (AUTO) 10.5 % (2-12); NEUTROPHILS # (AUTO) 4.3 X10'3 (1.8-7.7); NEUTROPHILS % (AUTO) 70.2 % (42-75); PLATELET COUNT 231 X10'3 (140-440); RED BLOOD COUNT 4.15 X10'6 (4.20-5.60); RED CELL DISTRIBUTION WIDTH 27.4 % (11.5-14.5); WHITE BLOOD COUNT 6.1 X10'3 (4.5-11.0)
[2019-01-12 06:20] VITALS: BP 162/98
[2019-01-12] MEDS: HYDROcodone/acetaminophen 5mg/325mg tablet PO PRN ×3 (06:28→19:14)
[2019-01-12 06:30] LABS: ALANINE AMINOTRANSFERASE 35 U/L (12-78); ALBUMIN 2.2 G/DL (3.4-5.0); ALBUMIN/GLOBULIN RATIO 0.6 (1.1-1.5); ALKALINE PHOSPHATASE 124 IU/L (46-116); ANION GAP 9 (8-16); ASPARTATE AMINO TRANSFERASE 38 U/L (10-37); BILIRUBIN,TOTAL 0.2 MG/DL (0.1-1.0); BLOOD UREA NITROGEN 23 MG/DL (7-18); BUN/CREATININE RATIO 20.7 (6.6-38.0); CALCIUM 9.2 MG/DL (8.5-10.1); CHLORIDE 109 MMOL/L (99-107); CREATININE 1.11 MG/DL (0.40-0.90); GLUCOSE 99 MG/DL (70-104); MAGNESIUM 1.6 MG/DL (1.5-2.4); POTASSIUM 3.9 MMOL/L (3.5-5.1); SODIUM 143 MMOL/L (135-145); TOTAL CARBON DIOXIDE 25.1 MMOL/L (24-32); eGFR 50 ML/MIN
--- NOTE | 2019-01-12 06:32 | NUR ---
Problems reprioritized. Patient report given, questions answered & plan of care reviewed with Genesis.
--- NOTE | 2019-01-12 06:32 | NUR ---
[facility] documentation: I have reviewed and agree with all interventions, assessments performed and documented by Marcel HAYWARD. [facility] Medication Administration: For this medication-pass time frame, all medication were reviewed, dispensed, administered and documented per hospital policy by Marcel HAYWARD.
--- NOTE | 2019-01-12 06:39 | NUR ---
Patient in room PCU 3014. I have received report from Joi HAYWARD and had the opportunity to ask questions and assume patient care.
[2019-01-12 06:58] VITALS: BP 162/98
[2019-01-12 07:52] LABS: TOTAL CELLS COUNTED 100
[2019-01-12 07:53] LABS: ANISOCYTOSIS 3+; HYPOCHROMASIA 1+; MICROCYTOSIS 1+; PLATELET ESTIMATE NORMAL; POLYCHROMASIA 1+; ROULEAUX 1+
[2019-01-12] MEDS: K and/or MAG REPLACEMENT MC SCH (08:00)
[2019-01-12] MEDS: levoFLOXACIN-Levaquin 500mg/D5 100 ML IV SCH (08:09)
[2019-01-12] MEDS: aspirin 81mg tab.chew PO SCH (08:11)
[2019-01-12] MEDS: apixaban 5mg tablet PO SCH ×2 (08:11→19:13)
[2019-01-12] MEDS: diltiazem CD 120mg capsule (once-daily) PO SCH (08:11)
[2019-01-12] MEDS: atorvastatin 20mg tablet PO SCH (08:11)
[2019-01-12 11:00] VITALS: BP 153/99
[2019-01-12 18:00] VITALS: BP 139/87
--- NOTE | 2019-01-12 18:39 | NUR ---
Patient in room PCU 3014. I have received report from Julia HAYWARD and had the opportunity to ask questions and assume patient care.
[2019-01-12 22:00] VITALS: BP 122/85
[2019-01-13] MEDS: HYDROcodone/acetaminophen 5mg/325mg tablet PO PRN ×2 (01:12→08:21)
[2019-01-13 02:00] VITALS: BP 135/81
[2019-01-13] MEDS: albuterol 2.5 MG/3 ML nebule NEB SCH ×4 (02:32→20:21)
[2019-01-13] MEDS: morphine 4 MG/ML inj SYRINge IV PRN ×3 (05:11→22:58)
[2019-01-13 06:15] LABS: BASOPHILS % (AUTO) 0.4 % (0-1); EOSINOPHILS % (AUTO) 0.6 % (0-6); HEMATOCRIT 34.1 % (35.0-45.0); HEMOGLOBIN 10.9 g/dl (12.0-16.0); LYMPHOCYTES # (AUTO) 1.4 X10'3 (1.1-4.8); LYMPHOCYTES % (AUTO) 21.8 % (21-51); MEAN CORPUSCULAR HEMOGLOBIN 25.6 PG (27.0-31.0); MEAN PLATELET VOLUME 6.8 FL (7.4-10.4); MONOCYTES # (AUTO) 0.6 X10'3 (0-0.9); MONOCYTES % (AUTO) 9.5 % (2-12); NEUTROPHILS # (AUTO) 4.5 X10'3 (1.8-7.7); NEUTROPHILS % (AUTO) 67.7 % (42-75); PLATELET COUNT 278 X10'3 (140-440); RED BLOOD COUNT 4.26 X10'6 (4.20-5.60); WHITE BLOOD COUNT 6.6 X10'3 (4.5-11.0)
[2019-01-13 06:30] LABS: ALANINE AMINOTRANSFERASE 37 U/L (12-78); ALBUMIN 2.3 G/DL (3.4-5.0); ALBUMIN/GLOBULIN RATIO 0.6 (1.1-1.5); ALKALINE PHOSPHATASE 131 IU/L (46-116); ANION GAP 11 (8-16); ASPARTATE AMINO TRANSFERASE 43 U/L (10-37); BILIRUBIN,TOTAL 0.2 MG/DL (0.1-1.0); BLOOD UREA NITROGEN 22 MG/DL (7-18); CALCIUM 9.2 MG/DL (8.5-10.1); CHLORIDE 107 MMOL/L (99-107); GLUCOSE 106 MG/DL (70-104); MAGNESIUM 1.6 MG/DL (1.5-2.4); SODIUM 142 MMOL/L (135-145); TOTAL CARBON DIOXIDE 24.2 MMOL/L (24-32); TOTAL PROTEIN 6.3 G/DL (6.4-8.2); eGFR 51 ML/MIN
--- NOTE | 2019-01-13 06:30 | NUR ---
Problems reprioritized. Patient report given, questions answered & plan of care reviewed with Jane HAYWARD and Kate RN.
--- NOTE | 2019-01-13 06:36 | NUR ---
Patient in room PCU 3014. I have received report from YESY Novoa and had the opportunity to ask questions and assume patient care.
[2019-01-13 07:00] VITALS: BP 133/93
[2019-01-13] MEDS: acetaminophen 325mg tablet PO PRN (07:16)
[2019-01-13] MEDS: atorvastatin 20mg tablet PO SCH (07:16)
[2019-01-13] MEDS: apixaban 5mg tablet PO SCH ×2 (07:16→21:15)
[2019-01-13] MEDS: diltiazem CD 120mg capsule (once-daily) PO SCH (07:32)
[2019-01-13] MEDS: levoFLOXACIN-Levaquin 500mg/D5 100 ML IV SCH (07:32)
[2019-01-13 07:44] LABS: TOTAL CELLS COUNTED 100
[2019-01-13 07:45] LABS: ANISOCYTOSIS 3+; HYPOCHROMASIA 1+; PLATELET ESTIMATE NORMAL; POLYCHROMASIA 1+; ROULEAUX 1+
[2019-01-13] MEDS: K and/or MAG REPLACEMENT MC SCH (08:00)
[2019-01-13] MEDS: aspirin 81mg tab.chew PO SCH (08:21)
[2019-01-13] MEDS: metroNIDAZOLE-Flagyl 500mg/NS 100 ML IV SCH ×3 (08:54→23:58)
--- NOTE | 2019-01-13 10:30 | NUR ---
Dr. Louis at bedside.
[2019-01-13 11:00] VITALS: BP 136/93
--- NOTE | 2019-01-13 11:45 | NUR ---
Pt's daughter at bedside. Discussion with pt and daughter re code status, hospice & daughter obtaining POA. Will contact case management for further information for pt and family.
[2019-01-13] MEDS: oxyCODONE/APAP 10/325mg tablet PO PRN ×2 (12:01→18:19)
[2019-01-13] MEDS ORDERED: iohexol 300mg/ml 100ml inj. ONE (12:04)
--- NOTE | 2019-01-13 12:47 | NUR ---
Pt out of room for CT scan.
--- NOTE | 2019-01-13 13:14 | NUR ---
Pt back to room after CT scan
[2019-01-13 15:00] VITALS: BP 121/61
--- NOTE | 2019-01-13 18:31 | NUR ---
Problems reprioritized. Patient report given, questions answered & plan of care reviewed with YESY Cao & YESY Thomas.
--- NOTE | 2019-01-13 18:37 | NUR ---
Patient in room PCU 3014B. I have received report from YESY THOMPSON and had the opportunity to ask questions and assume patient care. PATIENT HAS NS RUNNING AT 20 mL/hr. IS STABLE AT THIS TIME. WILL CONTINUE TO MONITOR CLOSELY.
[2019-01-13 19:00] VITALS: BP 129/69
--- NOTE | 2019-01-13 21:50 | NUR ---
Late administration of evening dose of Eloquis due to prioritization of care. Patient is stable at this time. Will continue to monitor closely.
[2019-01-13 23:00] VITALS: BP 129/81
[2019-01-14 03:00] VITALS: BP 136/88
[2019-01-14] MEDS: albuterol 2.5 MG/3 ML nebule NEB SCH ×3 (03:01→14:08)
[2019-01-14] MEDS: oxyCODONE/APAP 10/325mg tablet PO PRN ×2 (03:17→11:30)
--- NOTE | 2019-01-14 06:10 | NUR ---
Patient in room PCU 3014. I have received report from Nash HAYWARD and had the opportunity to ask questions and assume patient care.
--- NOTE | 2019-01-14 06:13 | NUR ---
Problems reprioritized. Patient report given, questions answered & plan of care reviewed with YESY ARCHER.
[2019-01-14 06:15] LABS: BASOPHILS # (AUTO) 0.1 X10'3 (0-0.2); BASOPHILS % (AUTO) 0.7 % (0-1); EOSINOPHILS % (AUTO) 0.5 % (0-6); HEMATOCRIT 32.4 % (35.0-45.0); HEMOGLOBIN 10.6 g/dl (12.0-16.0); LYMPHOCYTES # (AUTO) 1.3 X10'3 (1.1-4.8); LYMPHOCYTES % (AUTO) 18.1 % (21-51); MEAN CORPUSCULAR HEMOGLOBIN 25.7 PG (27.0-31.0); MEAN CORPUSCULAR HGB CONC 32.6 g/dL (33.0-36.5); MEAN CORPUSCULAR VOLUME 78.8 FL (78-98); MEAN PLATELET VOLUME 6.6 FL (7.4-10.4); MONOCYTES # (AUTO) 0.9 X10'3 (0-0.9); MONOCYTES % (AUTO) 12.3 % (2-12); NEUTROPHILS # (AUTO) 5.1 X10'3 (1.8-7.7); NEUTROPHILS % (AUTO) 68.4 % (42-75); PLATELET COUNT 282 X10'3 (140-440); RED BLOOD COUNT 4.11 X10'6 (4.20-5.60); RED CELL DISTRIBUTION WIDTH 27.1 % (11.5-14.5); WHITE BLOOD COUNT 7.4 X10'3 (4.5-11.0)
[2019-01-14 06:26] LABS: ALANINE AMINOTRANSFERASE 39 U/L (12-78); ALBUMIN 2.4 G/DL (3.4-5.0); ALBUMIN/GLOBULIN RATIO 0.6 (1.1-1.5); ALKALINE PHOSPHATASE 127 IU/L (46-116); ANION GAP 12 (8-16); ASPARTATE AMINO TRANSFERASE 40 U/L (10-37); BILIRUBIN,TOTAL 0.2 MG/DL (0.1-1.0); BLOOD UREA NITROGEN 24 MG/DL (7-18); BUN/CREATININE RATIO 20.5 (6.6-38.0); CALCIUM 9.8 MG/DL (8.5-10.1); CHLORIDE 105 MMOL/L (99-107); CREATININE 1.17 MG/DL (0.40-0.90); GLUCOSE 107 MG/DL (70-104); MAGNESIUM 1.6 MG/DL (1.5-2.4); POTASSIUM 4.1 MMOL/L (3.5-5.1); SODIUM 140 MMOL/L (135-145); TOTAL CARBON DIOXIDE 23.2 MMOL/L (24-32); TOTAL PROTEIN 6.4 G/DL (6.4-8.2); eGFR 47 ML/MIN
[2019-01-14 07:00] VITALS: BP 136/90
[2019-01-14] MEDS: apixaban 5mg tablet PO SCH (07:32)
[2019-01-14] MEDS: aspirin 81mg tab.chew PO SCH (07:32)
[2019-01-14] MEDS: atorvastatin 20mg tablet PO SCH (07:32)
[2019-01-14] MEDS: levoFLOXACIN-Levaquin 500mg/D5 100 ML IV SCH (07:32)
[2019-01-14] MEDS: metroNIDAZOLE-Flagyl 500mg/NS 100 ML IV SCH (07:32)
[2019-01-14] MEDS: diltiazem CD 120mg capsule (once-daily) PO SCH (07:32)
[2019-01-14] MEDS: K and/or MAG REPLACEMENT MC SCH (07:54)
[2019-01-14] MEDS: morphine 4 MG/ML inj SYRINge IV PRN (08:51)
[2019-01-14 09:21] LABS: ANISOCYTOSIS 3+; PLATELET ESTIMATE NORMAL
[2019-01-14 09:22] LABS: HYPOCHROMASIA 1+; MICROCYTOSIS 1+; POLYCHROMASIA 1+
[2019-01-14] MEDS ORDERED: LEVO750T21 PO (11:26)
[2019-01-14] MEDS ORDERED: METR-159 PO (11:26)
[2019-01-14] MEDS ORDERED: CARCD120C PO (11:26)
--- NOTE | 2019-01-14 14:40 | NUR ---
Patient Discharged. Patient discharged home via private vehicle. Patient escorted out via nurse's aide in a wheelchair. Patient would be discharging home with daughter Ana. IV catheter removed prior to discharge, catheter intact. New prescriptions provided to patient via [facility], and new prescriptions discussed with patient via RN. All questions and concerns addressed prior to discharge. Tele leads removed prior to discharge and tele box returned to [employer].
[2019-01-14] MEDS ORDERED: metroNIDAZOLE 500mg tablet PO SCH (16:00)
[2019-01-15] MEDS ORDERED: levoFLOXACIN 500mg tablet PO SCH (11:00)
== END 2019-01-14 14:40 | disposition home health service (06) | DRG 136 ==
LOC: ER 15:47 → ED HOLD 17:47 → PCU 3S 19:52
PROVIDERS: ADMIT Internal Medicine; ATTEND Family Medicine
PROC: B32T1ZZ Computerized Tomography (CT Scan) of Left Pulmonary Artery using Low Osmolar Contrast (ICD-10-PCS; 2019-01-10)
PROC: B3201ZZ Computerized Tomography (CT Scan) of Thoracic Aorta using Low Osmolar Contrast (ICD-10-PCS; 2019-01-10)
PROC: B32S1ZZ Computerized Tomography (CT Scan) of Right Pulmonary Artery using Low Osmolar Contrast (ICD-10-PCS; 2019-01-10)
PROC: 4A02XM4 Measurement of Cardiac Total Activity, External Approach (ICD-10-PCS; principal; 2019-01-11)
PROC: 3E033HZ Introduction of Radioactive Substance into Peripheral Vein, Percutaneous Approach (ICD-10-PCS; 2019-01-11)
DX: C34.90 Malignant neoplasm of unspecified part of unspecified bronchus or lung (principal); J18.1 Lobar pneumonia, unspecified organism; C78.7 Secondary malignant neoplasm of liver and intrahepatic bile duct; C79.00 Secondary malignant neoplasm of unspecified kidney and renal pelvis; C79.31 Secondary malignant neoplasm of brain; J44.0 Chronic obstructive pulmonary disease with (acute) lower respiratory infection; I13.0 Hypertensive heart and chronic kidney disease with heart failure and stage 1 through stage 4 chronic kidney disease, or unspecified chronic kidney disease; C79.70 Secondary malignant neoplasm of unspecified adrenal gland; I50.9 Heart failure, unspecified; I48.91 Unspecified atrial fibrillation; F17.200 Nicotine dependence, unspecified, uncomplicated; E78.5 Hyperlipidemia, unspecified; N18.3 Chronic kidney disease, stage 3 (moderate); F15.90 Other stimulant use, unspecified, uncomplicated; F41.9 Anxiety disorder, unspecified; R59.0 Localized enlarged lymph nodes; Z95.2 Presence of prosthetic heart valve; Z88.0 Allergy status to penicillin; Z88.5 Allergy status to narcotic agent; Z80.1 Family history of malignant neoplasm of trachea, bronchus and lung; Z66 Do not resuscitate
CPT/HCPCS: 36415; 71045; 71275; 74177; 78452; 80053; 80061; 83605; 83735; 83880; 84484; 85025; 85610; 85730; 87040; 87070; 93005; 93306; 94640; 94760; 96365; 96375; 97116; 97162; 97530; 99285; A9500; G0378; J0280; J1956; J2270; J3490; J7030; Q9967